=== PATIENT | male | born 1960 | race African-American/Black ===

== ENCOUNTER 2018-03-15 20:30 | Emergency (ER) | payer OTHER ==
[~2018-03-15] VITALS: Ht 180.3 cm; Wt 114.3 kg
[2018-03-15 21:00] VITALS: BP 168/72
[2018-03-15] MEDS ORDERED: AMOX875T PO (21:23)
--- NOTE | 2018-03-15 21:23 | PHYS DOC ---
Past Medical History Past Medical History: Asthma, Diabetes-Type II, Hypertension Past Surgical History: No Surgical History Alcohol Use: None Drug Use: None Adult General Chief Complaint Chief Complaint: EARACHE/EAR PAIN [facility] HPI Patient is a 57 year old male who presents with right ear pain 4 days. Patient denies any recent illness. Patient denies swimming. Patient states that the right ear is muffled with hearing. Patient states he's been using over-the- counter eardrops and doesn't seem to be working. Patient states he has no known drug allergies. Review of Systems Review of Systems Constitutional: Denies fever or chills [] Eyes: Denies change in visual acuity, redness, or eye pain [] HENT: Right ear pain. Denies nasal congestion or sore throat [] Respiratory: Denies cough or shortness of breath [] Cardiovascular: No additional information not addressed in HPI [] GI: Denies abdominal pain, nausea, vomiting, bloody stools or diarrhea [] : Denies dysuria or hematuria [] Musculoskeletal: Denies back pain or joint pain [] Integument: Denies rash or skin lesions [] Neurologic: Denies headache, focal weakness or sensory changes [] Endocrine: Denies polyuria or polydipsia [] All other systems were reviewed and found to be within normal limits, except as documented in this note. Allergies Allergies Allergies Coded Allergies Type Severity Reaction Last Updated Verified No Known Drug Allergies 03/15/18 No Physical Exam Physical Exam Constitutional: Well developed, well nourished, no acute distress, non-toxic appearance. [] HENT: Right ear tympanic is red and painful during examination. Normocephalic, atraumatic, bilateral external ears normal, oropharynx moist, no oral exudates, nose normal. [] Eyes: PERRLA, EOMI, conjunctiva normal, no discharge. [] Neck: Normal range of motion, no tenderness, supple, no stridor. [] Cardiovascular:Heart rate regular rhythm, no murmur [] Lungs & Thorax: Bilateral breath sounds clear to auscultation [] Abdomen: Bowel sounds normal, soft, no tenderness, no masses, no pulsatile masses. [] Skin: Warm, dry, no erythema, no rash. [] Back: No tenderness, no CVA tenderness. [] Extremities: No tenderness, no cyanosis, no clubbing, ROM intact, no edema. [] Neurologic: Alert and oriented X 3, normal motor function, normal sensory function, no focal deficits noted. [] Psychologic: Affect normal, judgement normal, mood normal. [] Current Patient Data Vital Signs Vital Signs Date Time Temp Pulse Resp B/P (MAP) Pulse Ox O2 Delivery O2 Flow Rate FiO2 03/15/18 21:00 97.9 98 18 100 Room Air 97.9 EKG EKG [] Radiology/Procedures Radiology/Procedures [] Course & Med Decision Making Course & Med Decision Making Patient is here with a 4 day history of right ear pain. Patient is afebrile. Patient's right year tympanic is red and painful with examination. Patient denies any recent illness. Patient rates his pain an 8 out of 10. Patients lungs are clear to auscultation and his throat is without exudates. Patient denies chest pain or shortness of air, or cough. She denies any abdominal pain, nausea, vomiting. He shouldn't to take ibuprofen for pain and to take amoxicillin as prescribed for otitis media. Patient to use a cotton ball to keep any kind water out of his ear. Patient to follow-up with his primary care physician. [] Dragon Disclaimer Dragon Disclaimer This electronic medical record was generated, in whole or in part, using a voice recognition dictation system. Departure Departure Impression: Primary Impression: Otitis media Disposition: 01 HOME, SELF-CARE Condition: STABLE Referrals: ADELA BROWN (PCP) Patient Instructions: Otitis Media, Adult Additional Instructions: Follow up with your primary care. Take Ibuprofen or Tylenol for pain and fever. Scripts Amoxicillin (AMOXICILLIN) 875 Mg Tablet 875 MG PO TID for 7 Days, #21 TAB 0 Refills Prov: MARIPOSA ANGUIANO [employer]REAT MONITORING ANALYST 03/15/18 Problem Qualifiers Primary Impression: Otitis media Otitis media type: unspecified Chronicity: acute Qualified Codes: H66.90 - Otitis media, unspecified, unspecified ear MARIPOSA ANGUIANO [employer]REAT MONITORING ANALYST Mar 15, 2018 21:23
== END 2018-03-15 21:56 | disposition home or self-care (01) ==
LOC: ER 20:30
DX: I10 Essential (primary) hypertension (principal); H66.91 Otitis media, unspecified, right ear; E11.9 Type 2 diabetes mellitus without complications; J45.909 Unspecified asthma, uncomplicated
CPT/HCPCS: 99283